=== PATIENT | female | born 1995 | race African-American/Black ===

== ENCOUNTER 2024-01-27 04:15 | Emergency (ER) | payer MEDICAID ==
[~2024-01-27] VITALS: Ht 157.5 cm; Wt 64.0 kg
[2024-01-27 04:31] VITALS: BP 113/61; PULSE 70; RESP 18; TEMP 98.3
[2024-01-27] MEDS ORDERED: LIDOCAINE 1% 10 ML VIAL SQ ONE (04:45)
[2024-01-27] MEDS ORDERED: PERTUSS(ACELL),DIPH,TET/PF 0.5 ML SYRINGE [ADULT] IM. ONE (05:15)
== END 2024-01-27 07:34 | disposition home or self-care (01) ==
LOC: EMS 04:16
DX: S01.01XA Laceration without foreign body of scalp, initial encounter (principal); X58.XXXA Exposure to other specified factors, initial encounter; Y93.89 Activity, other specified; Y92.89 Other specified places as the place of occurrence of the external cause; Y99.8 Other external cause status
CPT/HCPCS: 99282; 36415; 12001; J3490